=== PATIENT | female | born 1990 | race American Indian/Alaskan Native ===

== ENCOUNTER 2017-12-08 02:08 | Emergency (ER) | payer MEDICAID ==
[2017-12-08 03:18] LABS: Basophils % (Auto) 0.6 % (0.0-1.8); Eosinophils # (Auto) 0.1 K/mm3 (0.0-0.4); Eosinophils % (Auto) 0.9 % (0.0-4.3); Hematocrit 34.9 % (30.3-42.9); Hemoglobin 11.8 gm/dl (10.1-14.3); Lymphocytes # (Auto) 1.4 K/mm3 (1.2-5.4); Mean Corpuscular HGB Conc 34 % (30-34); Mean Corpuscular Hemoglobin 32 pg (28-32); Mean Corpuscular Volume 95 fl (79-97); Monocytes # (Auto) 0.4 K/mm3 (0.0-0.8); Monocytes % (Auto) 6.5 % (0.0-7.3); Platelet Count 256 K/mm3 (140-440); Red Blood Count 3.66 M/mm3 (3.65-5.03); Red Cell Distribution Width 12.8 % (13.2-15.2)
[2017-12-08 03:30] LABS: BUN/Creatinine Ratio 18; Blood Urea Nitrogen 9 mg/dL (7-17); Calcium 8.7 mg/dL (8.4-10.2); Hemolysis Index 4
--- NOTE | 2017-12-08 06:27 | XRay Report ---
FINAL REPORT EXAM: XR CHEST ROUTINE 2V HISTORY: Shortness of breath TECHNIQUE: PA and lateral chest radiographs PRIORS: None. FINDINGS: No mediastinal shift. Cardiac silhouette is not enlarged. No pneumothorax, effusion, or focal pulmonary opacity. No acute skeletal finding. IMPRESSION: No focal pulmonary opacity.
[2017-12-08 06:53] VITALS: BP 96/54
[2017-12-08] MEDS ORDERED: ULTRAM PO ONE (06:55)
--- NOTE | 2017-12-08 07:23 | Emergency Department Report ---
HPI - General Chief Complaint: Dyspnea/Respdistress Time Seen by Provider: 12/08/17 06:21 - HPI HPI: The patient is a 27 yo female whom presents for evaluation of chest pain. The patient reports chest pain on and off for the past 2 months, recurring one day ago, aching in quality, currently 5/10 in severity, exacerbated with coughing. She also reports some mild transient shortness of breath for minutes last night , resolved for greater than the past 2 hours. The patient denies fever, neck pain, parasthesias, dyspnea, cough, hemoptysis, palpitations, dizziness, syncope , unilateral leg swelling, calf muscle pain. Patient also denies cocaine or other stimulant use, history of DVT or PE, recent immobilization, or history of cancer. ED Past Medical Hx - Past Medical History Previous Medical History?: No - Surgical History Past Surgical History?: No - Social History Smoking Status: Current Every Day Smoker Substance Use Type: None - Medications Home Medications: Home Medications Medication Instructions Recorded Confirmed Last Taken Type ALBUTEROL Inhaler [ProAir HFA 2 puff IH QID PRN #1 inhalation 12/08/17 Unknown Rx Inhaler] Ibuprofen [Motrin] 400 mg PO Q8H PRN #30 tablet 12/08/17 Unknown Rx traMADol [Ultram 50 MG tab] 50 mg PO Q6HR PRN #12 tablet 12/08/17 Unknown Rx ED Review of Systems ROS: Stated complaint: CP SOB Other details as noted in HPI Constitutional: denies: fever ENT: denies: throat or neck pain Respiratory: reports cough, shortness of breath Cardiovascular: reports: chest pain Endocrine: denies unexplained weight loss or gain Gastrointestinal: denies: abdominal pain, nausea Genitourinary: denies: dysuria Musculoskeletal: denies: leg swelling Skin: denies: rash Neurological: denies: headache Hematological/Lymphatic: denies: easy bleeding or easy bruising Psych: denies sadness or hopelessness Physical Exam - Physical Exam Vital Signs: Vital Signs 12/08/17 12/08/17 12/08/17 02:29 04:48 04:50 Temperature 98.1 F Pulse Rate 78 70 69 Respiratory 20 18 Rate Blood Pressure 110/65 Blood Pressure 123/64 [Left] O2 Sat by Pulse 100 100 100 Oximetry 12/08/17 12/08/17 12/08/17 06:00 06:31 07:01 Temperature Pulse Rate 68 66 74 Respiratory 14 32 H 24 Rate Blood Pressure 115/64 96/54 96/54 Blood Pressure [Left] O2 Sat by Pulse 100 100 98 Oximetry 12/08/17 07:06 Temperature Pulse Rate Respiratory 18 Rate Blood Pressure Blood Pressure [Left] O2 Sat by Pulse Oximetry Physical Exam: General: well-nourished, well-developed, no acute distress Head: Normocephalic, atraumatic Eyes: normal sclera ENT: Mucous membranes are pink and moist Neck: trachea midline, neck supple, No neck stiffness, no cervical adenopathy Respiratory: Breath sounds equal bilaterally, no wheezing, rales, or rhonchi Cardio: S1 and S2 present, no murmurs, rubs, gallops, capillary refill is brisk Abdomen: Normoactive bowel sounds, soft abdomen, no rigidity, no guarding or rebound tenderness Chest WALL/Back: No tenderness to palpation of the chest wall, no CVA tenderness with percussion Musc: No pitting edema Skin: No rash Neuro: no facial drooping, normal speech Psych: Normal affect ED Course Vital Signs 12/08/17 12/08/17 12/08/17 02:29 04:48 04:50 Temperature 98.1 F Pulse Rate 78 70 69 Respiratory 20 18 Rate Blood Pressure 110/65 Blood Pressure 123/64 [Left] O2 Sat by Pulse 100 100 100 Oximetry 12/08/17 12/08/17 12/08/17 06:00 06:31 07:01 Temperature Pulse Rate 68 66 74 Respiratory 14 32 H 24 Rate Blood Pressure 115/64 96/54 96/54 Blood Pressure [Left] O2 Sat by Pulse 100 100 98 Oximetry 12/08/17 07:06 Temperature Pulse Rate Respiratory 18 Rate Blood Pressure Blood Pressure [Left] O2 Sat by Pulse Oximetry ED Medical Decision Making - Lab Data Result diagrams: 12/08/17 03:07 12/08/17 03:07 - Medical Decision Making The patient was seen and examined by myself. The patient is placed on a cardiac rehabilitation specialist and continuous pulse ox. On initial evaluation, the patient was found to be in no distress. EKG was negative for findings suggestive of acute cardiac infarct. Labs and imaging are obtained. The patient is given pain medicine. Chest x-ray is negative for pneumothorax, focal consolidation, pulmonary vascular congestion, pleural effusion, or other obvious acute cardiopulmonary disease process. Lab results were non-concerning including levels of troponin, WBC, hemoglobin, hematocrit, electrolytes, renal function. The patient was reevaluated and reported that their symptoms were markedly improved. As the patient has a MAXIMUS risk score less than 2, and a well's score less than 2, the patient is at low risk of ACS or pulmonary emboli etiology of their symptoms. The patient is stable for discharge with outpatient follow-up. The patient is given follow-up and return instructions. The patient expressed understanding and agreed with the plan. The patient is discharged in stable condition. Critical care attestation.: If time is entered above; I have spent that time in minutes in the direct care of this critically ill patient, excluding procedure time. ED Disposition Clinical Impression: Acute chest pain, Dehydration, mild Disposition: DC-01 TO HOME OR SELFCARE Is pt being admited?: No Does the pt Need Aspirin: No Condition: Stable Instructions: Chest Pain (ED), Costochondritis (ED) Prescriptions: Ibuprofen [Motrin] 400 mg PO Q8H PRN #30 tablet PRN Reason: Pain traMADol [Ultram 50 MG tab] 50 mg PO Q6HR PRN #12 tablet PRN Reason: Pain Referrals: SILVIA HANNA MD [Primary Care Provider] - 3-5 Days Time of Disposition: 07:16
== END 2017-12-08 08:11 | disposition home or self-care (01) ==
LOC: ED 02:08
DX: E86.0 Dehydration (principal); R07.9 Chest pain, unspecified; R06.02 Shortness of breath; R05 Cough; F17.200 Nicotine dependence, unspecified, uncomplicated
CPT/HCPCS: 36415; 71046; 80048; 84484; 84703; 85025; 93005; 93010

== ENCOUNTER 2017-12-10 16:18 | Emergency (ER) | payer MEDICAID ==
--- NOTE | 2017-12-10 18:29 | Emergency Department Report ---
<KAREN RESENDEZ - Last Filed: 12/10/17 19:06> ED Chest Pain HPI - General Chief Complaint: Upper Respiratory Infection Stated Complaint: CHEST PAIN/KYRA Time Seen by Provider: 12/10/17 17:47 Source: patient Mode of arrival: Ambulatory Limitations: No Limitations - History of Present Illness Initial Comments: 27-year-old female past medical history asthma, smoker, cocaine use presents with complaint of one week of intermittent substernal chest pain. Patient's states that she had an episode lasting approximately 60-90 minutes today of anterior chest discomfort. Some associated pressure and palpitations. Patient denies any history of diabetes hyperlipidemia and high cholesterol. States that neither her mother or father have had a heart attack to her knowledge. Denies any personal history of PE or DVT denies any lower extremity swelling. Denies any fever or chills. States she has had slight nonproductive cough. Denies any recent surgeries or recent long distance travel. MD Complaint: chest pain Onset/Timin -: week(s) Onset: during rest Pain Location: substernal Quality: tightness, aching Consistency: intermittent Improves With: nothing Worsens With: nothing - Related Data Previous Rx's Medication Instructions Recorded Last Taken Type ALBUTEROL Inhaler [ProAir HFA 2 puff IH QID PRN #1 inhalation 12/08/17 Unknown Rx Inhaler] Ibuprofen [Motrin] 400 mg PO Q8H PRN #30 tablet 12/08/17 Unknown Rx traMADol [Ultram 50 MG tab] 50 mg PO Q6HR PRN #12 tablet 12/08/17 Unknown Rx Allergies Allergy/AdvReac Type Severity Reaction Status Date / Time naproxen Allergy Anaphylaxis Verified 12/10/17 16:30 Heart Score - HEART Score History: Slightly suspicious EKG: Normal Age: < 45 Risk factors: 1-2 risk factors Troponin: < normal limit HEART Score: 1 ED Review of Systems ROS: Stated complaint: CHEST PAIN/KYRA Other details as noted in HPI Constitutional: denies: chills, fever Eyes: denies: eye pain, eye discharge, vision change ENT: denies: ear pain, throat pain Respiratory: denies: cough, shortness of breath, wheezing Cardiovascular: denies: chest pain, palpitations Endocrine: no symptoms reported Gastrointestinal: denies: abdominal pain, nausea, diarrhea Genitourinary: denies: urgency, dysuria, discharge Musculoskeletal: denies: back pain, joint swelling, arthralgia Skin: denies: rash, lesions Neurological: denies: headache, weakness, paresthesias Psychiatric: denies: anxiety, depression Hematological/Lymphatic: denies: easy bleeding, easy bruising ED Past Medical Hx - Past Medical History Previous Medical History?: No - Surgical History Past Surgical History?: No - Social History Smoking Status: Current Every Day Smoker Substance Use Type: None - Medications Home Medications: Home Medications Medication Instructions Recorded Confirmed Last Taken Type ALBUTEROL Inhaler [ProAir HFA 2 puff IH QID PRN #1 inhalation 12/08/17 Unknown Rx Inhaler] Ibuprofen [Motrin] 400 mg PO Q8H PRN #30 tablet 12/08/17 Unknown Rx traMADol [Ultram 50 MG tab] 50 mg PO Q6HR PRN #12 tablet 12/08/17 Unknown Rx ED Physical Exam - General Limitations: No Limitations General appearance: alert, in no apparent distress - Head Head exam: Present: atraumatic, normocephalic - Eye Eye exam: Present: normal appearance, PERRL, EOMI - ENT ENT exam: Present: mucous membranes moist - Neck Neck exam: Present: normal inspection - Respiratory Respiratory exam: Present: normal lung sounds bilaterally. Absent: respiratory distress - Cardiovascular Cardiovascular Exam: Present: regular rate, normal rhythm. Absent: systolic murmur, diastolic murmur, rubs, gallop - GI/Abdominal GI/Abdominal exam: Present: soft, normal bowel sounds - Extremities Exam Extremities exam: Present: normal inspection - Back Exam Back exam: Present: normal inspection - Neurological Exam Neurological exam: Present: alert, oriented X3, CN II-XII intact, normal gait - Psychiatric Psychiatric exam: Present: normal affect, normal mood - Skin Skin exam: Present: warm, dry, intact, normal color. Absent: rash ED Course Vital Signs 12/10/17 16:22 Temperature 97.6 F Pulse Rate 64 Respiratory 18 Rate Blood Pressure 106/52 O2 Sat by Pulse 98 Oximetry DIPESH score - Dipesh Score Age > 65: (0) No Aspirin use within the Past 7 Days: (0) No 3 or more CAD Risk Factors: (0) No 2 or more Angina events in past 24 hrs: (0) No Known CAD with more than 50% Stenosis: (0) No Elevated Cardiac Markers: (0) No ST Deviation Greater than 0.5mm: (0) No DIPESH Score: 0 ED Medical Decision Making - Lab Data Result diagrams: 12/10/17 18:40 - Medical Decision Making A/P: Chest pain 1- case signed out to ED attending 2- etiology of patient's chest pain is likely related to her use of cocaine 3- wells score, per negative, heart score low Critical care attestation.: If time is entered above; I have spent that time in minutes in the direct care of this critically ill patient, excluding procedure time. ED Disposition Clinical Impression: Chest pain Disposition: DC-01 TO HOME OR SELFCARE Condition: Stable Instructions: Chest Pain (ED) Additional Instructions: Discontinue cocaine consumption. Follow-up with any of the listed cardiology groups within the next week. Return to the ER right away with new pain, worsened pain, migration of pain, fevers, chills, lethargy, irritability, projectile vomiting, change in mental status, inability to tolerate liquid feeds. Referrals: PRIMARY CARE, [Primary Care Provider] - 3-5 Days [facility] [Provider Group] - 3-5 Days [facility] [Provider Group] - 3-5 Days <UMA RODRIGUEZ - Last Filed: 12/10/17 19:30> ED Course - Reevaluation(s) Reevaluation #1: 12/10/17 19:28 EKG is morphologically unremarkable. Vital signs are stable. Patient in no distress. Troponin negative. Low risk by DIPESH score, heart score, Wells criteria, perc negative. The patient is at low risk for major adverse cardiac event and is medically suitable to follow up with outpatient cardiology. ED Medical Decision Making - Lab Data Result diagrams: 12/10/17 18:40 12/10/17 18:40 Vital Signs 12/10/17 16:22 Temperature 97.6 F Pulse Rate 64 Respiratory 18 Rate Blood Pressure 106/52 O2 Sat by Pulse 98 Oximetry Labs 12/10/17 03 18:40 18:40 WBC 6.1 RBC 3.83 Hgb 12.2 Hct 37.3 MCV 97 MCH 32 MCHC 33 RDW 13.3 Plt Count 303 Lymph % (Auto) 23.2 Collier % (Auto) 7.5 H Eos % (Auto) 0.6 Baso % (Auto) 0.5 Lymph # 1.4 Collier # 0.5 Eos # 0.0 Baso # 0.0 Seg Neutrophils % 68.2 Seg Neutrophils # 4.1 Sodium 138 Potassium 3.9 Chloride 100.3 Carbon Dioxide 22 Anion Gap 20 BUN 12 Creatinine 0.5 L Estimated GFR > 60 BUN/Creatinine Ratio 24 Glucose 85 Calcium 9.0 Total Creatine Kinase 82 Troponin T < 0.010 - EKG Data When compared to previous EKG there are: previous EKG unavailable 12/10/17 19:28 Sinus, 72 bpm, normal axis, normal intervals, high left ventricular voltage, not morphologically consistent with a limitation myocardial infarction - Radiology Data Radiology results: report reviewed, image reviewed interpreted by me: X-ray of the chest from 2 days ago is negative ED Disposition Is pt being admited?: No Does the pt Need Aspirin: No
[2017-12-10 18:49] LABS: Basophils % (Auto) 0.5 % (0.0-1.8); Eosinophils % (Auto) 0.6 % (0.0-4.3); Hematocrit 37.3 % (30.3-42.9); Hemoglobin 12.2 gm/dl (10.1-14.3); Lymphocytes # (Auto) 1.4 K/mm3 (1.2-5.4); Lymphocytes % (Auto) 23.2 % (13.4-35.0); Mean Corpuscular HGB Conc 33 % (30-34); Mean Corpuscular Hemoglobin 32 pg (28-32); Mean Corpuscular Volume 97 fl (79-97); Monocytes # (Auto) 0.5 K/mm3 (0.0-0.8); Monocytes % (Auto) 7.5 % (0.0-7.3); Platelet Count 303 K/mm3 (140-440); Red Blood Count 3.83 M/mm3 (3.65-5.03); Red Cell Distribution Width 13.3 % (13.2-15.2)
[2017-12-10 19:10] LABS: BUN/Creatinine Ratio 24; Blood Urea Nitrogen 12 mg/dL (7-17); Hemolysis Index 22
[2017-12-10 19:38] VITALS: BP 102/68
== END 2017-12-10 19:37 | disposition home or self-care (01) ==
LOC: ED 16:18
DX: R07.89 Other chest pain (principal); F17.200 Nicotine dependence, unspecified, uncomplicated; Z88.8 Allergy status to other drugs, medicaments and biological substances
CPT/HCPCS: 36415; 80048; 82550; 84484; 85025; 93005; 93010; 99283